=== PATIENT | female | born 1990 | race Caucasian/White ===

== ENCOUNTER 2017-11-29 10:38 | Emergency (ER) | payer OTHER ==
[~2017-11-29] VITALS: Ht 160 cm; Wt 59.0 kg
[~2017-11-29 10:38] MED LIST: BACTRIM DS TAB1 EACH PO; IBUPROFEN600 M1 PO; IBUPROFEN800 M1 PO; KEFLEX500 M1 PO
--- NOTE | 2017-11-29 11:05 | ED CARDIAC/CP/PALPITATIONS ---
History of Present Illness General Chief Complaint: General Adult Stated Complaint: CHEST PAIN WITH DEEP BREATHES Source: patient, old records Exam Limitations: no limitations Vital Signs & Intake/Output Vital Signs & Intake/Output Vital Signs Date Time Temp Pulse Resp B/P B/P Pulse O2 O2 Flow FiO2 Mean Ox Delivery Rate 11/29 1253 98.0 80 17 120/76 100 Room Air 11/29 1150 Room Air Room Air 11/29 1045 97.9 89 18 126/86 99 Room Air Allergies Coded Allergies: NO KNOWN ALLERGIES (12/21/12) Reconcile Medications Omeprazole 40 MG CAPSULE. 1 CAP PO DAILY GERD Triage Note: PT TO ED FOR MIDSTERNAL REPRODUCIBLE CHEST PAIN THAT BEGAN AFTER BECOMING VERY ANXIOUS THIS AM REGARDING WORK. PT TEARFUL AND ANXIOUS IN TRIAGE. CHEST TENDER TO PALPATION. Triage Nurses Notes Reviewed? yes : No Patient currently breastfeeds: No HPI: 27F no PMH presenting with 10/10 epigastric pain since this morning. Usual state of health last night, had a normal dinner and then cereal before bed. Was woken up this morning by epigastric pain that has growin more and more severe. Has a history of GERD-like symptoms but never this severe. Pain is epigastric, non-radiating, no alleviating or exacerbating factors, present at rest and not worse with exertion, and not associated with any other symptoms. She denies headache, fever, chills, SOB, palpitations, lightheadedness, vomiting, diarrhea, hematuria, bloody stool, constipation. She reports nausea and appears very uncomfortable. Similar episode 2 months ago but was told it was a pulled muscle. Past History Travel History Traveled to [place] past 21 day No Medical History Any Pertinent Medical History? 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 No Review of Systems Review of Systems Constitutional: Reports: no symptoms. EENTM: Reports: no symptoms. Respiratory: Reports: no symptoms. Cardiovascular: Reports: no symptoms. GI: Reports: see HPI. Genitourinary: Reports: no symptoms. Musculoskeletal: Reports: no symptoms. Skin: Reports: no symptoms. Neurological/Psychological: Reports: no symptoms. Hematologic/Endocrine: Reports: no symptoms. Immunologic/Allergic: Reports: no symptoms. All Other Systems: Reviewed and Negative Physical Exam Physical Exam General Appearance: well developed/nourished, moderate distress Head: atraumatic, normal appearance Eyes: Bilateral: normal appearance. Ears, Nose, Throat: hearing grossly normal Neck: normal inspection, supple, full range of motion Respiratory: normal breath sounds, no respiratory distress Cardiovascular: regular rate/rhythm Gastrointestinal: Tender epigastric, otherwise non-tender, no rebound Extremities: normal inspection, normal range of motion, no edema Neurologic/Psych: awake, alert, oriented x 3, normal mood/affect Skin: intact, normal color, warm/dry Core Measures ACS in differential dx? No CVA/TIA Diagnosis No Sepsis Present: No Sepsis Focused Exam Completed? No Progress Differential Diagnosis: AMI, aortic dissection, atrial fibrillation, cholecystitis, CHF/pulm edema, costochondritis, hyperkalemia, hypovolemia, hyperthyroid, hyperventilation, intracranial hemorrhage, musculoskeletal pain, myocarditis, pancreatitis, pericarditis, pneumonia, pneumothorax, PSVT, pulmonary embolism, PUD/GERD, PVCs/PACs, respiratory failure, rib fracture, sepsis, unstable angina, V-fib/V-Tach, WPW syndrome Plan of Care: Orders Procedure Date/time Status TROPONIN LEVEL 11/29 1143 Complete URINE 11/29 1130 Complete COMPREHENSIVE METABOLIC PANEL 11/29 1129 Complete CBC WITHOUT DIFFERENTIAL 11/29 1129 Complete EKG 11/29 1047 Active Laboratory Tests 11/29/17 1146: Urine Test NEGATIVE 11/29/17 1143: Anion Gap 11, Estimated GFR > 60, BUN/Creatinine Ratio 18.3, Glucose 102 H, Calcium 9.2, Total Bilirubin 0.3, AST 21, ALT 38, Alkaline Phosphatase 65, Troponin I < 0.01, Total Protein 7.1, Albumin 4.0, Globulin 3.1, Albumin/ Globulin Ratio 1.3, CBC w Diff NO MAN DIFF REQ, RBC 4.33, MCV 89.9, MCH 29.3, RDW 12.6, MPV 8.3, Gran % 69.6, Lymphocytes % 24.2, Monocytes % 4.3, Eosinophils % 1.7, Basophils % 0.2, Absolute Granulocytes 3.9, Absolute Lymphocytes 1.3, Absolute Monocytes 0.2, Absolute Eosinophils 0.1, Absolute Basophils 0, PUBS MCHC 32.6 L 11/29/17 1135: Troponin I Cancelled Symptoms improved following GI cocktail. Pain is unlikely to be cardiac given negative troponin and EKG, more likely GI related. Patient can be discharged home on a PPI with PCP follow up. Initial ED EKG: NSR, no ST T wave changes Departure Departure Disposition: HOME OR SELF CARE Condition: Stable Clinical Impression Primary Impression: GERD (gastroesophageal reflux disease) Referrals: Patient Has No Primary Care Dr (PCP/Family) Additional Instructions: Follow up with your primary care physician. Do not eat 3 hours before bed. Do not eat and then lie down. Decrease your intake of caffeine and spicy foods, and any other foods that may upset your stomach. Stop taking Ibuprofen, as it causes irritation of the stomach and can lead to ulcers. You can take Tylenol for pain. Return to the emergency room if you experience dark stools, bloody stools, bloody vomiting, worsening of the pain, or any new symptoms. Departure Forms: Customer Survey General Discharge Information Prescriptions: Current Visit Scripts Omeprazole 1 CAP PO DAILY #30 CAP Critical Care Note Critical Care Note Critical Care Time: 30-74 min
[2017-11-29 12:03] LABS: ABSOLUTE BASOPHIL COUNT 0 /CUMM (0.0-0.2); ABSOLUTE EOSINOPHIL COUNT 0.1 /CUMM (0.0-0.7); ABSOLUTE GRANULOCYTE CT 3.9 /CUMM (1.4-6.5); ABSOLUTE LYMPH COUNT 1.3 /CUMM (1.2-3.4); ABSOLUTE MONOCYTE COUNT 0.2 /CUMM (0.10-0.60); BASOPHIL % 0.2 % (0.0-2.0); EOSINOPHIL % 1.7 % (0-5); GRANULOCYTE % 69.6 % (42.2-75.2); HEMATOCRIT 38.9 % (37-47); MEAN CORPUSCULAR HGB 29.3 PG (27.0-31.0); MEAN CORPUSCULAR HGB CONC 32.6 G/DL (33.0-37.0); MEAN CORPUSCULAR VOLUME 89.9 FL (81.0-99.0); MEAN PLATELET VOLUME 8.3 FL (7.4-10.4); PLATELET COUNT 208 /CUMM (130-400); RBC DISTRIBUTION WIDTH 12.6 % (11.5-14.5); RED BLOOD CELL CT 4.33 /CUMM (4.20-5.40); WHITE BLOOD CELL COUNT 5.6 /CUMM (4.8-10.8)
[2017-11-29 12:53] VITALS: BP 120/76
[2017-11-29] MEDS ORDERED: OMEPRAZOLE40 M1 PO (13:19)
== END 2017-11-29 13:25 ==
LOC: ERH 10:38
PROVIDERS: Internal Medicine
DX: K21.9 Gastro-esophageal reflux disease without esophagitis (principal); R10.13 Epigastric pain
CPT/HCPCS: 81025; 93005; 93010; 96374; J3101

== ENCOUNTER 2018-06-04 18:20 | Emergency (ER) | payer OTHER ==
[~2018-06-04] VITALS: Ht 160 cm; Wt 65.8 kg
[~2018-06-04 18:20] MED LIST changes: +OMEPRAZOLE40 M1 PO
[2018-06-04 18:35] VITALS: BP 110/74
== END 2018-06-04 19:48 | disposition admitted as inpatient to this hospital (09) ==
LOC: ERH 18:20
DX: R10.13 Epigastric pain (principal)
CPT/HCPCS: 93005; 93010; 99281